=== PATIENT | male | born 1970 | race African-American/Black ===

== ENCOUNTER 2024-01-10 19:47 | Emergency (ER) | payer SELFPAY ==
[2024-01-10 20:47] LABS: Influenza A by NAA Not Detected (NotDetected); Influenza B by NAA Not Detected (NotDetected); SARS-CoV-2 NAA Rapid Test Not Detected (NotDetected)
== END 2024-01-10 21:05 | disposition home or self-care (01) ==
LOC: ERS 19:47
DX: J40 Bronchitis, not specified as acute or chronic (principal)
CPT/HCPCS: 71045